=== PATIENT | female | born 1985 | race African-American/Black ===

== ENCOUNTER 2018-09-07 11:58 | Emergency (ER) | payer MEDICAID, OTHER ==
[~2018-09-07] VITALS: Ht 162.6 cm; Wt 54.4 kg
[~2018-09-07 11:58] MED LIST: BACTRIM DS TAB1 EAC1 ORAL; CEPHALEXIN500 MG ORAL; IBUPROFEN600 MG ORAL
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
[2018-09-07 12:51] LABS: APPEARANCE,URINE SLIGHTLY CLOUDY; BILIRUBIN, URINE NEGATIVE (NEGATIVE); COLOR,URINE PALE YELLOW; GLUCOSE, URINE (UA) NEGATIVE (NEGATIVE); KETONES,URINE NEGATIVE (NEGATIVE); LEUKOCYTE ESTERASE ,URINE 3+ (NEGATIVE); NITRITE,URINE NEGATIVE (NEGATIVE); PH,URINE 5 (4.5-8.0); PROTEIN,URINE NEGATIVE (NEGATIVE); UROBILINOGEN,URINE NORMAL MG/DL (0.0-1.0)
[2018-09-07 13:14] VITALS: BP 129/85
--- NOTE | 2018-09-07 13:15 | Diagnostic Imaging Report ---
EXAM: XR Right Ribs and AP Chest, 3 or More Views CLINICAL HISTORY: PAIN TECHNIQUE: Frontal and oblique views of the right ribs and frontal view of the chest. COMPARISON: No relevant prior studies available. FINDINGS: Lungs: Unremarkable. The lungs appear clear. No confluent pulmonary opacities. Pleural space: Unremarkable. No pneumothorax. Heart: Unremarkable. No cardiomegaly. Mediastinum: Unremarkable. Bones/joints: Nondisplaced fracture along the lateral aspect of the right ninth rib. IMPRESSION: Nondisplaced fracture along the lateral aspect of the right ninth rib.
[2018-09-07] MEDS ORDERED: IBUPROFEN600 MG ORAL (13:48)
[2018-09-07] MEDS ORDERED: NORCO 5-325 TA1 EACH ORAL (13:48)
[2018-09-07 14:01] VITALS: BP 129/85
== END 2018-09-07 14:01 | disposition home or self-care (01) ==
LOC: EMR 12:56
DX: S22.31XA Fracture of one rib, right side, initial encounter for closed fracture (principal); R07.81 Pleurodynia; Y04.2XXA Assault by strike against or bumped into by another person, initial encounter; Y93.9 Activity, unspecified; Y92.9 Unspecified place or not applicable; Y99.9 Unspecified external cause status
CPT/HCPCS: 81003; 81025; 99283